=== PATIENT | male | born 1980 | race Caucasian/White ===

== ENCOUNTER 2021-02-02 03:32 | Emergency (ER) | payer OTHER ==
[~2021-02-02] VITALS: Ht 177.8 cm; Wt 106.8 kg
--- NOTE | 2021-02-02 03:38 | PHYS DOC ---
General Adult EDM: Chief Complaint: ABDOMINAL PAIN HPI: HPI: ". . I ve been sick since yesterday... Nausea .. Vomiting.. hurting in my mid abdomen.. [place] bad... usually I am never.. sick..." Pt. " We ve been .. 9 yrs... and I ve never seen him this sick or throw up... 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 pain. Patient denies any bad food intake. Patient denies any specific ill contacts. Patient no recent travel /overseas assignments. Patient denies any trauma. Patient denies any fever or chills. Patient reports multiple episodes of vomiting. Patient normally healthy. Up-to-date with vaccinations including Covid Moderna x 2. Patient has not had seasonal flu vaccination as yet. Patient normally follows at [facility]. Patient has had a inguinal hernia repair on right. Patient has had some dry heaves tonight with a few streaks of bright red blood after vomiting. Did have a normal stool earlier. Stool was not tarry or dark. Review of Systems: Review of Systems: Constitutional: Denies fever or chills Eyes: Denies change in visual acuity HENT: Denies nasal congestion or sore throat Respiratory: Denies cough or shortness of breath Cardiovascular: Denies chest pain or edema GI: Complains of central abdominal pain, nausea, vomiting. Pt. denies bloody stools or diarrhea : Denies dysuria Musculoskeletal: Denies back pain or joint pain Integument: Denies rash Neurologic: Denies headache, focal weakness or sensory changes Endocrine: Denies polyuria or polydipsia Lymphatic: Denies swollen glands Psychiatric: Denies depression or anxiety Family History: Family History: Noncontributory to presentation Current Medications: Current Meds: See nursing for home meds Allergies: Allergies: No known drug allergies Physical Exam: PE: Constitutional: Well developed, well nourished, in acute distress, non-toxic appearance. [] HENT: Normocephalic, atraumatic, bilateral external ears normal, oropharynx dry, no oral exudates, nose normal. Scar on scalp Eyes: PERRLA, EOMI, conjunctiva normal, no discharge. [] Neck: Normal range of motion, no tenderness, supple, no stridor. [] Cardiovascular: Tachycardic heart rate regular rhythm, no murmur [] Lungs & Thorax: Bilateral breath sounds to apex auscultation [] Abdomen: Bowel sounds normal, soft, epigastric and mid abdomen tenderness, no masses, no pulsatile masses. Old surgery scar. Rebound to mid and Rt. lower abdomen. Skin: Warm, dry, no erythema, no rash. [] Back: No tenderness, no CVA tenderness. [] Extremities: No tenderness, no cyanosis, no clubbing, ROM intact, no edema. Mild psoas sign. . Neurologic: Alert and oriented X 3, normal motor function, normal sensory function, no focal deficits noted. [] Psychologic: Affect anxious, judgement normal, mood normal. [] EKG: EKG: My interpretation of her EKG shows a sinus bradycardia at 50 bpm. No acute morphology time of EKG is 0401 hrs. [] Radiology/Procedures: Radiology/Procedures: [][place] [address] IMAGING REPORT Signed PATIENT: ANGEL ASKEW ACCOUNT: [id number] : 1980 LOCATION: ER AGE: 40 SEX: M EXAM STATUS: REG ER ORD. PHYSICIAN: ATUL VIEIRA MD REASON: nv, abd. pain-severe, OMNI 240, 30ml & OMNI 300, 75ml PROCEDURE: CT ABD PELV W/ORAL&IV CONTRAST PQRS Compliance Statement: One or more of the following individualized dose reduction techniques were utilized for this examination: 1. Automated exposure control 2. Adjustment of the mA and/or kV according to patient size 3. Use of iterative reconstruction technique CT ABDOMEN+PELVIS W Clinical Indication: Reason: nv, abd. pain-severe, Comparison: None. Technique: Helical CT imaging of the abdomen and pelvis is performed after 74 cc of Omnipaque 300 IV contrast. Oral contrast also administered. Findings: There is mild bilateral dependent atelectasis. Cardiac size is normal. There is bilobed cyst in the right hepatic lobe near the dome measuring 2.2 cm. Liver otherwise homogeneous. The gallbladder, spleen, pancreas, adrenal glands, abdominal aorta, and kidneys are normal. No obvious abnormality of the stomach. There is no dilated small bowel. The appendix is mildly dilated measuring up to 1 cm. There is mild periappendiceal inflammation. There is an appendicolith at the base of the appendix measuring 6 mm. There is no perforation or periappendiceal abscess. There is scattered stool in the colon. No colon wall thickening is identified. No abdominal adenopathy or free fluid. The urinary bladder is normal. The prostate and seminal vesicles are normal. There is trace pelvic free fluid. Bilateral inguinal lymph nodes may be reactive. There is minimal left convexity lumbar scoliosis. No acute bone abnormality. IMPRESSION: 1. Mild acute appendicitis. 2. Trace pelvic free fluid. Electronically signed by: Harry Chavez MD (02/02/2021 6:11 AM) [facility] DICTATED AND SIGNED BY: HARRY CHAVEZ MD DATE: 02/02/21 0602 CC: ATUL VIEIRA MD; ALLY ZHU DO, MPH ~[facility] [id number] [place] [address] IMAGING REPORT Signed PATIENT: ANGEL ASKEW ACCOUNT: [id number] : 1980 LOCATION: ER AGE: 40 SEX: M EXAM STATUS: REG ER ORD. PHYSICIAN: ATUL VIEIRA MD REASON: pain, n/v PROCEDURE: ACUTE ABDOMEN SERIES ACUTE ABDOMEN SERIES History: Pain, nausea and vomiting. Comparison: None. Findings: Frontal chest and supine and upright views of the abdomen. Cardiomediastinal silhouette is normal. There is no pleural effusion or pneumothorax. The lungs are clear. No pneumoperitoneum is identified. No dilated air-filled loops of bowel are seen. Bowel gas pattern is nonobstructive. There is stool in the right colon. No obvious organomegaly. There is sclerosis to the right of the L5 vertebral body. IMPRESSION: 1. No acute cardiopulmonary process. 2. Nonobstructive bowel gas pattern. Electronically signed by: Harry Chavez MD (02/02/2021 5:06 AM) [facility] DICTATED AND SIGNED BY: HARRY CHAVEZ MD DATE: 02/02/21 0458 CC: ATUL VIEIRA MD; ALLY ZHU DO, MPH ~MTH0 0 Heart Score: C/O Chest Pain: N/A HEART Score for Chest Pain: HEART Score for Chest Pain Response (Comments) Value History Slighlty/Non-Suspicious 0 ECG Normal 0 Age < 45 0 Risk Factors No Risk Factors 0 Total 0 Risk Factors: Risk Factors: DM, Current or recent (<one month) smoker, HTN, HLP, family history of CAD, obesity. Risk Scores: Score 0 - 3: 2.5% MACE over next 6 weeks - Discharge Home Score 4 - 6: 20.3% MACE over next 6 weeks - Admit for Clinical Observation Score 7 - 10: 72.7% MACE over next 6 weeks - Early Invasive Strategies Course & Med Decision Making: Course & Med Decision Making Pertinent Labs and Imaging studies reviewed. (See chart for details) Pt. endorsed to Dr. Reilly at shift change. He will make disposition on pt. . Awaiting call back - Surgery at [facility] at shift change. Impression: 1. Nausea and vomiting 2. Abdomen pain 3. Elevated CK - 367 4. Acute appendicitis [] Dragon Disclaimer: Dragon Disclaimer: This electronic medical record was generated, in whole or in part, using a voice recognition dictation system. Dragon Disclaimer This chart was dictated in whole or in part using Voice Recognition software in a busy, high-work load, and often noisy Emergency Department environment. It may contain unintended and wholly unrecognized errors or omissions. ATUL VIEIRA MD Feb 02, 2021 03:38
--- NOTE | 2021-02-02 04:08 | EKG ---
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
[2021-02-02] MEDS ORDERED: CONTRAST GIVEN. MC PRN (04:15)
[2021-02-02] MEDS ORDERED: KETOROLAC 30 MG/ML VIAL. IVP ONE (04:30)
[2021-02-02] MEDS ORDERED: ONDANSETRON PF 4 MG/2 ML VIAL. IVP ONE (04:30)
[2021-02-02] MEDS ORDERED: IV RINGERS SOLUTION,LACTATED 1,000 ML IV SCH (04:30)
[2021-02-02] MEDS ORDERED: MORPHINE SULFATE 10 MG/ML SYRINGE. SQ ONE (04:30)
[2021-02-02] MEDS ORDERED: FAMOTIDINE 20 MG/2 ML VIAL IVP ONE (04:30)
[2021-02-02] MEDS ORDERED: IOHEXOL 240 MG/ML 50ML VIAL. PO ONE (04:30)
[2021-02-02] MEDS ORDERED: IOHEXOL 300 MG/ML 75 ML VIAL. IV ONE (04:30)
[2021-02-02 04:58] LABS: BASO % 0 % (0-3); EOS # 0.1 x10^3/uL (0.0-0.7); EOS % 1 % (0-3); HEMATOCRIT 40.9 % (39.0-53.0); HEMOGLOBIN 13.8 g/dL (13.0-17.5); LYMPH % 10 % (24-48); MEAN CORPUSCULAR HEMOGLOBIN 29 pg (25-35); MEAN CORPUSCULAR HGB CONC 34 g/dL (31-37); MEAN CORPUSCULAR VOLUME 87 fL (79-100); MONO # 0.8 x10^3/uL (0.0-1.1); MONO % 8 % (0-9); NEUT # 8.2 x10^3uL (1.8-7.7); NEUT % 82 % (31-73); PLATELET COUNT 171 x10^3/uL (140-400); RED BLOOD COUNT 4.73 x10^6/uL (4.30-5.70); RED CELL DISTRIBUTION WIDTH 13.9 % (11.5-14.5)
--- NOTE | 2021-02-02 05:08 | RAD ---
ACUTE ABDOMEN SERIES History: Pain, nausea and vomiting. Comparison: None. Findings: Frontal chest and supine and upright views of the abdomen. Cardiomediastinal silhouette is normal. There is no pleural effusion or pneumothorax. The lungs are clear. No pneumoperitoneum is identified. No dilated air-filled loops of bowel are seen. Bowel gas pattern i s nonobstructive. There is stool in the right colon. No obvious organomegaly. There is sclerosis to the right of the L5 vertebral body. IMPRESSION: 1. No acute cardiopulmonary process. 2. Nonobstructive bowel gas pattern. Electronically signed by: Harry Chavez MD (02/02/2021 5:06 AM) [facility]
[2021-02-02 05:34] LABS: CALCIUM 9.4 mg/dL (8.5-10.1); GFR 83.2; POTASSIUM 3.9 mmol/L (3.5-5.1)
[2021-02-02 05:39] LABS: ALBUMIN 3.9 g/dL (3.4-5.0); DIRECT BILIRUBIN 0.1 mg/dL (0.0-0.2); TOTAL BILIRUBIN 0.4 mg/dL (0.2-1.0); TOTAL PROTEIN 6.5 g/dL (6.4-8.2)
[2021-02-02 05:40] LABS: INFLUENZA A PATIENT NEGATIVE (NEGATIVE); INFLUENZA B PATIENT NEGATIVE (NEGATIVE)
--- NOTE | 2021-02-02 06:13 | RAD ---
PQRS Compliance Statement: One or more of the following individualized dose reduction techniques were utilized for this examinat ion: 1. Automated exposure control 2. Adjustment of the mA and/or kV according to patient size 3. Use of iterative reconstruction technique CT ABDOMEN+PELVIS W Clinical Indication: Reason: nv, abd. pain-severe, Comparison: None. Technique: Helical CT imaging of the abdomen and pelvis is performed after 74 cc of Omnipaque 300 IV contrast. Oral contrast also administered. Findings: There is mild bilateral dependent atelectasis. Cardiac size is normal. There is bilobed cyst in the right hepatic lobe near the dome measuring 2.2 cm. Liver otherwise homog eneous. The gallbladder, spleen, pancreas, adrenal glands, abdominal aorta, and kidneys are normal. No obvious abnormality of the stomach. There is no dilated small bowel. The appendix is mildly dilated measuring up to 1 cm. There is mild periappendiceal inflammation. Ther e is an appendicolith at the base of the appendix measuring 6 mm. There is no perforation or periappe ndiceal abscess. There is scattered stool in the colon. No colon wall thickening is identified. No abdominal adenopath y or free fluid. The urinary bladder is normal. The prostate and seminal vesicles are normal. There is trace pelvic fr ee fluid. Bilateral inguinal lymph nodes may be reactive. There is minimal left convexity lumbar scoliosis. No acute bone abnormality. IMPRESSION: 1. Mild acute appendicitis. 2. Trace pelvic free fluid. Electronically signed by: Harry Chavez MD (02/02/2021 6:11 AM) [facility]
[2021-02-02] MEDS ORDERED: IV NORMAL SALINE 50ML 50 ML ONE (06:18)
[2021-02-02] MEDS ORDERED: cefTRIAXone SODIUM 1 GM VIAL ONE (06:18)
[2021-02-02 07:30] LABS: BARBITURATES NEG (NEG); BENZODIAZEPINES NEG (NEG); CANNABINOIDS NEG (NEG); COCAINE NEG (NEG); METHADONE NEG (NEG); OPIATES POS (NEG); PHENCYCLIDINE NEG (NEG)
[2021-02-02 07:31] LABS: AMORPHOUS SEDIMENT,UR PRESENT /HPF; BACTERIA,URINE 0 /HPF (0-FEW); BILIRUBIN,URINE NEG (NEG); CLARITY,URINE CLOUDY; COLOR,URINE YELLOW; GLUCOSE,URINE NEG (NEG); NITRITE,URINE NEG (NEG); RBC,URINE OCC /HPF (0-2); UROBILINOGEN,URINE 0.2 mg/dL (0.2 mg/dL)
[2021-02-02 07:35] LABS: AMPHETAMINE/METHAMPHETAMINE NEG (NEG)
[2021-02-02 09:15] VITALS: BP 118/48
[2021-02-02] MEDS ORDERED: MORPHINE SULFATE 4 MG/ML DISP.SYRIN. IV ONE (09:15)
== END 2021-02-02 09:18 | disposition short-term general hospital (02) ==
LOC: ER 03:32
DX: K35.80 Unspecified acute appendicitis (principal); R11.2 Nausea with vomiting, unspecified; R10.84 Generalized abdominal pain; R74.8 Abnormal levels of other serum enzymes; Z20.822 Contact with and (suspected) exposure to COVID-19
CPT/HCPCS: 74022; 74177; 80048; 80076; 80307; 81001; 82150; 82550; 83690; 84484; 85025; 85610; 85730; 87426; 87804; 93005; 96361; 96365; 96366; 96372; 96375; 99285; J0696; J1885; J2270; J2405; J3490; J7120; Q9966; Q9967